=== PATIENT | male | born 1990 | race Caucasian/White ===

== ENCOUNTER → 2018-08-24 | Outpatient (CLI) | payer OTHER ==
[2018-08-24 08:38] LABS: COLLECTION METHOD DRY COLLECTION; COLLECTION SITE ON-SITE; DAYS ABSTINENT 4 DAYS (2-7); ROUND CELL CONC. 0.9 X10^6/mL (<5.1); SA MOTILITY CONCENTRATION 0.6 X10^6/mL; SA NONMOTILE CONCENTRATION 4.6 X10^6/mL; SA NONMOTILE COUNT1 42; SA NONMOTILE COUNT2 49; SA ROUND CELL COUNT1 9; SA ROUND CELL COUNT2 8; SA SPERM MOTILE CONC 0.6 X10^6mL; SA STRAIGHT MOTILITY CNT 1 6; SA STRAIGHT MOTILITY CNT 2 5; SEMEN TESTING TIME 820; SPECIMEN CONTAINER POLYPROPYLENE CUP; SPERM CONCENTRATION 5.2 X10^6/mL (>12.0); TOTAL SPERM COUNT 20.8 X10^6 (>33.0)
[2018-08-24 08:39] LABS: SPERM PROGRESSION 2
[2018-08-24 09:12] LABS: PERCENT NONMOTILE SPERM 88 %; PERCENT VIABLE 65 %; SEMEN VIABILITY STAINED 19; SEMEN VIABILITY UNSTAINED 35; SPERM VIABILITY 69 % (>55); TOTAL VIABILITY COUNT 54
== END ==
LOC: LAB 07:13
PROVIDERS: ATTEND Student in an Organized Health Care Education/Training Program
DX: E29.1 Testicular hypofunction (principal)
CPT/HCPCS: 89321